=== PATIENT | female | born 1960 | race Caucasian/White ===

== ENCOUNTER 2018-01-30 09:25 | Inpatient (IN) | payer MEDICAID, BC ==
[2018-01-30] MEDS: RINGERS SOLUTION,LACTATED 1,000 ML IV PRN ×2 (09:45→17:30)
[2018-01-30] MEDS ORDERED: METOCLOPRAMIDE HCL 10 MG/2 ML VIAL IVP PRN (10:25)
[2018-01-30 11:01] LABS: HEMATOCRIT 28.5 % (35.0-47.0); HEMOGLOBIN 9.3 gm/dl (11.6-16.0)
[2018-01-30] MEDS: HYDROCODONE/APAP 7.5/325MG TABLET PO PRN ×2 (11:06→20:30)
[2018-01-30] MEDS: CEFAZOLIN 1 Gram 1 GM/50 ML BAG IVPB SCH ×2 (11:13→20:24)
[2018-01-30] MEDS ORDERED: MAGNESIUM HYDROXIDE 30 ML UDC PO PRN (13:26)
[2018-01-30] MEDS: DIAZEPAM 5 MG TABLET PO PRN (14:47)
[2018-01-31] MEDS: RINGERS SOLUTION,LACTATED 1,000 ML IV PRN ×3 (00:37→18:36)
[2018-01-31] MEDS: CEFAZOLIN 1 Gram 1 GM/50 ML BAG IVPB SCH ×3 (03:36→19:34)
[2018-01-31 07:20] LABS: HEMATOCRIT 24.3 % (35.0-47.0); HEMOGLOBIN 7.5 gm/dl (11.6-16.0)
[2018-01-31 08:07] LABS: ABO GROUP O; ANTIBODY SCREEN NEGATIVE (NEGATIVE); RH TYPE POSITIVE
[2018-01-31] MEDS: HYDROCODONE/APAP 7.5/325MG TABLET PO PRN ×3 (08:18→21:30)
[2018-01-31] MEDS: DIAZEPAM 5 MG TABLET PO PRN (08:20)
--- NOTE | 2018-01-31 12:40 | History and Physical Report ---
DATE OF ADMISSION: 01/30/2018 ADMISSION DIAGNOSIS: Abdominal wall hematoma. HISTORY OF PRESENT ILLNESS: The patient is a very nice 57-year-old patient who 5 days ago underwent post-weight loss panniculectomy and mastopexy. She was admitted the night after for syncope with a hemoglobin of 11. Discharged home the next day. Was doing well until approximately 12:30 last night. Her called and said that she had increased abdominal pain, swelling, and then again got syncopal. She went to the emergency room up in [place], was evaluated and had a CT scan showing she had an abdominal wall hematoma and hemoglobin of 6.9. She was transfused and transferred here for permanent care. She was taking Lovenox postop to prevent PE, and this has been discontinued. PAST MEDICAL AND SURGICAL HISTORY: Asthma, hypertension, vertical sleeve gastroplasty, reflux, tonsillectomy, diabetes, sleep apnea, depression, tubal ligation, knee scope, lumbar laminectomy, cholecystectomy, septoplasty, rhinoplasty, ankle fracture, hiatal hernia. ALLERGIES: MORPHINE, DILAUDID, COMPAZINE, PHENERGAN, SINGULAIR, TETANUS, ULTRAM. FAMILY HISTORY: Negative. SOCIAL HISTORY: No alcohol or tobacco abuse. PHYSICAL EXAMINATION: GENERAL: Mucous membranes are pink. She is alert and oriented. She is 5 feet 7 inches tall and weight is 184 pounds. HEENT: Nice bright red mucous membranes. NECK: No JVD. BREASTS: Soft. Nipples are pink. ABDOMEN: Flat. Slightly distended. No signs of any vascular compromise of the abdominal flaps. EXTREMITIES: Mild edema. Good pedal pulses. LABORATORY DATA: Last hemoglobin was 11. ASSESSMENT: Postop abdominal hematoma. PLAN: Discontinue Lovenox. Has already been transfused. Plan I&D hematoma in a.m. [facility]
[2018-01-31] MEDS ORDERED: DIAZEPAM 5 MG TABLET PO PRN (18:26)
[2018-01-31] MEDS ORDERED: ONDANSETRON HCL IV 4 MG/2 ML VIAL IVP PRN (18:28)
[2018-01-31] MEDS ORDERED: RINGERS SOLUTION,LACTATED 1,000 ML IV PRN (18:49)
[2018-02-01] MEDS: CEFAZOLIN 1 Gram 1 GM/50 ML BAG IVPB SCH (02:12)
[2018-02-01 06:45] LABS: HEMATOCRIT 24.3 % (35.0-47.0); HEMOGLOBIN 7.5 gm/dl (11.6-16.0)
[2018-02-01] MEDS: HYDROCODONE/APAP 7.5/325MG TABLET PO PRN ×2 (07:41→08:35)
[2018-02-01] MEDS ORDERED: BUPIVACAINE 0.5% W/EPI MPF 30 ML VIAL IVP ONE (10:54)
[2018-02-01] MEDS ORDERED: ONDANSETRON HCL IV 4 MG/2 ML VIAL IVP ONE (10:54)
[2018-02-01] MEDS ORDERED: PROPOFOL 10 MG/ML VIAL IV ONE (10:54)
[2018-02-01] MEDS ORDERED: MIDAZOLAM HCL 2MG/2ML VIAL IV ONE (10:54)
[2018-02-01] MEDS ORDERED: SEVOFLURANE 250 ML INH ONE (10:54)
[2018-02-01] MEDS ORDERED: FENTANYL PF 100MCG/2ML VIAL IV ONE ×2 (10:54)
[2018-02-01] MEDS ORDERED: LIDOCAINE 2% MDV (20MG/ML) 20ML VIAL IV ONE (10:54)
--- NOTE | 2018-02-02 14:00 | Operative Note ---
DATE OF SURGERY: 01/31/2018 PREOPERATIVE DIAGNOSIS: Postoperative abdominal wall hematoma. POSTOPERATIVE DIAGNOSIS: Postoperative abdominal wall hematoma. OPERATION: I&D abdominal wall hematoma. Surgeon: Dhruv Chambers MD Anesthesia: General. Estimated Blood Loss: Minimal. DRAINS: A 15 round Butch. SPECIMENS: None. COMPLICATIONS: None. Indication: The patient is a 57-year-old established patient who was almost 5 days postoperative abdominoplasty and mastopexy. called at 12:30 a.m. about increased abdominal pain, swelling, and diaphoresis. She was [facility] to [facility] and was found to have a CT scan and abdominal wall hematoma. Anticoagulation was stopped and she has remained stable. PROCEDURE: The patient and were interviewed preoperatively and the operative plan was reviewed. She was then taken to the operating room. PDS stockings. After induction of uncomplicated general anesthesia, all pressure points well padded and protected. We prepped and draped in the usual sterile manner. We opened the central aspect of her incision and evacuated subcutaneous hematoma. Most of it in the suprapubic lower abdominal wall left area. We then irrigated with copious amounts of saline until it was clear. Observed for about 10 minutes and saw no active bleeding or blood flowing anywhere. We then splayed the tissue with Tisseel, placed a brand new drain and closed in 2 layers of 3-0 Monocryl. Sterile dressings were applied. She tolerated the procedure well without complication. DANYEL
== END 2018-02-01 10:55 | disposition home or self-care (01) | DRG 921 ==
LOC: MEDSURG 09:25
PROVIDERS: ADMIT Plastic Surgery; ATTEND Plastic Surgery
PROC: 0J9800Z Drainage of Abdomen Subcutaneous Tissue and Fascia with Drainage Device, Open Approach (ICD-10-PCS; principal; 2018-01-30)
DX: L76.32 Postprocedural hematoma of skin and subcutaneous tissue following other procedure (principal); Z98.84 Bariatric surgery status; I10 Essential (primary) hypertension; J45.909 Unspecified asthma, uncomplicated
CPT/HCPCS: 84703; 85014; 85018; 85730; 86850; 86900; 86901; J2405; J2765; J7120